=== PATIENT | female | born 2000 | race Caucasian/White ===

== ENCOUNTER 2020-02-28 20:17 | Emergency (ER) | payer SELFPAY ==
[2020-02-28 20:23] VITALS: Ht 170.2 cm
[2020-02-28 21:12] VITALS: BP 106/66
== END 2020-02-28 21:12 | disposition home or self-care (01) ==
LOC: ED 20:17
DX: F41.9 Anxiety disorder, unspecified (principal); Z86.2 Personal history of diseases of the blood and blood-forming organs and certain disorders involving the immune mechanism
CPT/HCPCS: U0003-CS